=== PATIENT | male | born 1995 | race Two or more races ===

== ENCOUNTER 2021-01-31 09:33 | Emergency (ER) | payer BC, MEDICAID, OTHER ==
[~2021-01-31] VITALS: Ht 182.9 cm; Wt 108.9 kg
[2021-01-31] MEDS ORDERED: EPINEPHrine HCL 1 MG/10 ML SYRG IV ONE (09:34)
[2021-01-31] MEDS ORDERED: SODIUM BICARBONATE 8.4% INJ 50ML SYRINGE IV ONE (09:34)
[2021-01-31] MEDS ORDERED: NALOXONE HCL 1MG/ML 2ML SYRINGE ONE ×2 (09:41→10:01)
[2021-01-31] MEDS ORDERED: EPINEPHrine HCL 1 MG/10 ML SYRG ONE (09:56)
[2021-01-31] MEDS ORDERED: NOREPINEPHRINE 8 MG/250ML KIT 0 ML IV ONE (09:57)
[2021-01-31] MEDS ORDERED: NOREPINEPHRINE 8 MG/250ML KIT 250 ML IV ONE (10:00)
[2021-01-31] MEDS ORDERED: SODIUM BICARBONATE 8.4% INJ 50ML SYRINGE ONE ×3 (10:13→10:18)
[2021-01-31] MEDS ORDERED: NALOXONE HCL 1MG/ML 2ML SYRINGE IV ONE (10:15)
[2021-01-31] MEDS ORDERED: DOPamine 1600MCG/ML D5W 250 ML IV ONE (10:15)
[2021-01-31] MEDS ORDERED: SODIUM CHLORIDE 0.9% 2,000 ML IV ONE (10:15)
[2021-01-31] MEDS ORDERED: EPINEPHrine HCL 250 ML IV ONE (10:15)
[2021-01-31] MEDS ORDERED: NOREPINEPHRINE 8 MG/250ML KIT 250 ML IV SCH (10:15)
[2021-01-31 10:27] VITALS: BP 120/100
[2021-01-31] MEDS ORDERED: SODIUM BICARBONATE 50ML VIAL 150 ML in SOD CHL 0.45% 1,000 ML IV ONE (10:30)
== END 2021-01-31 14:38 ==
LOC: EDBD 09:33 → ER 09:33
DX: I46.9 Cardiac arrest, cause unspecified (principal); T50.901A Poisoning by unspecified drugs, medicaments and biological substances, accidental (unintentional), initial encounter; Y92.89 Other specified places as the place of occurrence of the external cause
CPT/HCPCS: 31500; 36556; 92950; 93005; 96374; 96375; 99291; J0171; J2310; J7030; 96365